=== PATIENT | female | born 1935 | race Caucasian/White ===

== ENCOUNTER 2022-07-31 16:58 | Inpatient (IN) | payer MEDICARE ==
--- NOTE | 2022-07-31 17:03 | ERPHSYRPT ---
- History of Present Illness Time Seen by Provider: 07/31/22 17:03 Source: patient, EMS, old records Exam Limitations: clinical condition Physician History: This is an 86-year-old white female patient who lives at home and is checked on at her home twice a day by a medical power of launch engineer per paramedics. Additional history was obtained from the paramedics. Patient seems confused and weak. Patient was brought to the emergency department secondary to weakness confusion and found down on the ground. It is unknown how long she has been on the ground. She has no complaints of pain. Per paramedics history, they state that she has been falling frequently. They state that her house is in a shambles and a hoarding type of condition. She is failing to thrive. Patient states its been 5 to 6 years since her last bath or shower. She denies chest pain. She denies shortness of breath. She denies abdominal pain. Timing/Duration: today Severity: moderate Associated Symptoms: denies symptoms Allergies/Adverse Reactions: No Known Drug Allergies Allergy (Verified 07/31/22 17:58) Home Medications: No Reportable Medications [No Reported Medications] 07/31/22 [History] Travel Risk - International Travel Have you traveled outside of the country in past 3 weeks: No - Coronavirus Screening Are you exhibiting any of the following symptoms?: No Close contact with a COVID-19 positive Pt in past 14-21 Days: No - Review of Systems Constitutional: Weakness Eyes: No Symptoms Ears, Nose, & Throat: No Symptoms Respiratory: No Symptoms Cardiac: No Symptoms Abdominal/Gastrointestinal: No Symptoms Genitourinary Symptoms: No Symptoms Musculoskeletal: No Symptoms Skin: Dryness (Extremely dry and cracking bilateral lower extremities with almost dust and flakes of skin.) Psychological: No Symptoms Endocrine: No Symptoms Hematologic/Lymphatic: No Symptoms Immunological/Allergic: No Symptoms All Other Systems: Reviewed and Negative - Past Medical History Pertinent Past Medical History: Yes (Patient is confused ) - Past Surgical History Past Surgical History: Yes (Patient is confused and unable) - Nursing Vital Signs Nursing Vital Signs: Initial Vital Signs Temperature 97.4 F 07/31/22 17:29 Pulse Rate 69 07/31/22 17:29 Blood Pressure 98/67 07/31/22 17:29 O2 Sat by Pulse Oximetry 91 L 07/31/22 17:29 Pain Scale Pain Intensity 0 - Physical Exam General Appearance: no apparent distress, other (Confused) Eye Exam: PERRL/EOMI, eyes nml inspection Ears, Nose, Throat Exam: normal ENT inspection, dry mucous membranes Neck Exam: normal inspection, non-tender, supple, full range of motion Respiratory Exam: normal breath sounds, lungs clear, airway intact, No chest tenderness, No respiratory distress Cardiovascular Exam: regular rate/rhythm, normal heart sounds, normal peripheral pulses Gastrointestinal/Abdomen Exam: soft, normal bowel sounds, No tenderness Pelvic Exam: not done Rectal Exam: not done Back Exam: normal inspection, normal range of motion, No CVA tenderness Extremity Exam: normal range of motion, other (Bilateral lower extremity with very dry skin with flaking and powder type consistency of her dry skin in her legs. She does have palpable pedal pulses) Neurologic Exam: alert, cooperative, rn trauma II-XII nml as tested, normal mood/affect, sensation nml Skin Exam: dry (See above description of patient's bilateral lower extremities) Lymphatic Exam: No adenopathy SpO2 Interpretation: borderline oxygenation O2 Delivery: Room Air - Course Nursing assessment & vital signs reviewed: Yes EKG Interpreted by Me: RATE (66), A-fib, LAFB, Right Bundle Branch Block, Other (No acute ischemic changes on today's EKG. PVCs present. Twelve-lead EKG interpreted by me.) Ordered Tests: Active Orders 24 hr Category Date Time Status EKG-ER Only STAT Care 07/31/22 17:50 Active IV Insertion STAT Care 07/31/22 17:50 Active HEAD WITHOUT CONTRAST [CT] Stat Exams 07/31/22 17:50 Taken BLOOD CULTURE Stat Lab 07/31/22 19:11 Received CBC W DIFF Stat Lab 07/31/22 19:11 Completed CMP Stat Lab 07/31/22 19:11 Completed CULTURE,URINE Stat Lab 07/31/22 18:01 Received ETHYL ALCOHOL Stat Lab 07/31/22 19:11 Completed Folate (Folic Acid) Stat Lab 07/31/22 Ordered MAGNESIUM Stat Lab 07/31/22 19:11 Completed T4 (Thyroxine) Stat Lab 07/31/22 19:11 Completed TROPONIN Q4H Lab 07/31/22 19:11 Received TROPONIN Q4H Lab 07/31/22 22:00 Ordered TROPONIN Q4H Lab 08/01/22 02:00 Ordered TSH [TSH, 3RD Generation] Stat Lab 07/31/22 19:11 Completed UA W/RFX UR CULTURE Stat Lab 07/31/22 18:01 Completed Vitamin B12 Stat Lab 07/31/22 Ordered Transfer Order Routine Transfer 07/31/22 Ordered Medication Summary Generic Name Dose Route Start Last Admin Trade Name Alex PRN Reason Stop Dose Admin Sodium Chloride 1,000 mls @ 100 mls/hr 07/31/22 18:00 07/31/22 18:28 Sodium Chloride 0.9% 1000 Ml IV 08/30/22 17:59 100 mls/hr .Q10H TATY Administration Discontinued Medications Generic Name Dose Route Start Last Admin Trade Name Freq PRN Reason Stop Dose Admin Ondansetron HCl 4 mg 07/31/22 17:50 07/31/22 18:28 Ondansetron Hcl 4 Mg/2 Ml Vial IV 07/31/22 17:51 4 mg STAT ONE Administration Ondansetron HCl Confirm 07/31/22 18:27 Ondansetron Hcl 4 Mg/2 Ml Vial Administered 07/31/22 18:28 Dose 4 mg .ROUTE .STK-MED ONE Lab/Rad Data: Laboratory Result Diagrams 07/31/22 19:11 07/31/22 19:11 Laboratory Results 07/31/22 07/31/22 07/31/22 Range/Units 19:11 19:11 19:11 WBC (4.0-10.5) x10^3/uL RBC (4.1-5.4) x10^6/uL Hgb (12.0-16.0) g/dL Hct (35-47) % MCV (78-100) fL MCH (26-32) pg MCHC (32-36) g/dL RDW (11.5-14.0) % Plt Count (150-450) x10^3/uL MPV (7.5-11.0) fL Gran % (36.0-66.0) % Immature Gran % (Auto) (0.00-0.4) % Nucleat RBC Rel Count (0.00-0.1) % Eos # (Auto) (0-0.5) x10^3/uL Immature Gran # (Auto) (0.00-0.03) x10^3u/L Absolute Lymphs (auto) (1.0-4.6) x10^3/uL Absolute Monos (auto) (0.0-1.3) x10^3/uL Absolute Nucleated RBC (0.00-0.01) x10^3u/L Lymphocytes % (24.0-44.0) % Monocytes % (0.0-12.0) % Eosinophils % (0.00-5.0) % Basophils % (0.0-0.4) % Absolute Granulocytes (1.4-6.9) x10^3/uL Basophils # (0-0.4) x10^3/uL Sodium (137-145) mmol/L Potassium (3.5-5.1) mmol/L Chloride (98-107) mmol/L Carbon Dioxide (22-30) mmol/L Anion Gap (5-15) MEQ/L BUN (7-17) mg/dL Creatinine (0.52-1.04) mg/dL Estimated GFR ML/MIN Glucose (74-106) mg/dL Calcium (8.4-10.2) mg/dL Magnesium (1.6-2.3) mg/dL Total Bilirubin (0.2-1.3) mg/dL AST (14-36) U/L ALT (0-35) U/L Alkaline Phosphatase (38-126) U/L Ammonia < 9 L (9-30) umol/L Serum Total Protein (6.3-8.2) g/dL Albumin (3.5-5.0) g/dL Thyroxine (T4) 0.622 L (5.53-10.96) ug/dL TSH 3rd Generation (0.47-4.68) mIU/L Urine Color (Yellow) Urine Appearance (Clear) Urine pH (4.6-8.0) Ur Specific Clayton (1.005-1.030) Urine Protein (Negative) Urine Glucose (UA) (Negative) mg/dL Urine Ketones (Negative) Urine Blood (Negative) Urine Nitrite (Negative) Urine Bilirubin (Negative) Urine Urobilinogen (0.2) mg/dL Ur Leukocyte Esterase (Negative) U Hyaline Cast (Auto) (0-2) /LPF Urine Microscopic RBC (0-5) /HPF Urine Microscopic WBC (0-5) /HPF Ur Epithelial Cells (None Seen) /HPF Urine Bacteria (None Seen) /HPF Urine Culture Reflexed (NO) Ethyl Alcohol (0-10) mg/dL Influenza Type A Ag NEGATIVE (NEGATIVE) Influenza Type B Ag NEGATIVE (NEGATIVE) RSV (PCR) NEGATIVE (Negative) SARS-CoV-2 (PCR) NEGATIVE (NEGATIVE) 07/31/22 07/31/22 07/31/22 Range/Units 19:11 19:11 19:11 WBC 6.8 (4.0-10.5) x10^3/uL RBC 3.70 L (4.1-5.4) x10^6/uL Hgb 11.8 L (12.0-16.0) g/dL Hct 35.2 (35-47) % MCV 95.1 (78-100) fL MCH 31.9 (26-32) pg MCHC 33.5 (32-36) g/dL RDW 13.0 (11.5-14.0) % Plt Count 177 (150-450) x10^3/uL MPV 9.6 (7.5-11.0) fL Gran % 82.6 H (36.0-66.0) % Immature Gran % (Auto) 0.4 (0.00-0.4) % Nucleat RBC Rel Count 0.0 (0.00-0.1) % Eos # (Auto) 0.04 (0-0.5) x10^3/uL Immature Gran # (Auto) 0.03 (0.00-0.03) x10^3u/L Absolute Lymphs (auto) 0.64 L (1.0-4.6) x10^3/uL Absolute Monos (auto) 0.46 (0.0-1.3) x10^3/uL Absolute Nucleated RBC 0.00 (0.00-0.01) x10^3u/L Lymphocytes % 9.4 L (24.0-44.0) % Monocytes % 6.7 (0.0-12.0) % Eosinophils % 0.6 (0.00-5.0) % Basophils % 0.3 (0.0-0.4) % Absolute Granulocytes 5.65 (1.4-6.9) x10^3/uL Basophils # 0.02 (0-0.4) x10^3/uL Sodium 136 L (137-145) mmol/L Potassium 3.9 (3.5-5.1) mmol/L Chloride 103 (98-107) mmol/L Carbon Dioxide 28 (22-30) mmol/L Anion Gap 9.2 (5-15) MEQ/L BUN 28 H (7-17) mg/dL Creatinine 1.11 H (0.52-1.04) mg/dL Estimated GFR 49.5 ML/MIN Glucose 91 (74-106) mg/dL Calcium 9.4 (8.4-10.2) mg/dL Magnesium 2.0 (1.6-2.3) mg/dL Total Bilirubin 1.40 H (0.2-1.3) mg/dL AST 94 H (14-36) U/L ALT 24 (0-35) U/L Alkaline Phosphatase 49 (38-126) U/L Ammonia (9-30) umol/L Serum Total Protein 7.4 (6.3-8.2) g/dL Albumin 4.1 (3.5-5.0) g/dL Thyroxine (T4) (5.53-10.96) ug/dL TSH 3rd Generation 30.200 H (0.47-4.68) mIU/L Urine Color (Yellow) Urine Appearance (Clear) Urine pH (4.6-8.0) Ur Specific [place] (1.005-1.030) Urine Protein (Negative) Urine Glucose (UA) (Negative) mg/dL Urine Ketones (Negative) Urine Blood (Negative) Urine Nitrite (Negative) Urine Bilirubin (Negative) Urine Urobilinogen (0.2) mg/dL Ur Leukocyte Esterase (Negative) U Hyaline Cast (Auto) (0-2) /LPF Urine Microscopic RBC (0-5) /HPF Urine Microscopic WBC (0-5) /HPF Ur Epithelial Cells (None Seen) /HPF Urine Bacteria (None Seen) /HPF Urine Culture Reflexed (NO) Ethyl Alcohol < 10 (0-10) mg/dL Influenza Type A Ag (NEGATIVE) Influenza Type B Ag (NEGATIVE) RSV (PCR) (Negative) SARS-CoV-2 (PCR) (NEGATIVE) 07/31/22 Range/Units 18:01 WBC (4.0-10.5) x10^3/uL RBC (4.1-5.4) x10^6/uL Hgb (12.0-16.0) g/dL Hct (35-47) % MCV (78-100) fL MCH (26-32) pg MCHC (32-36) g/dL RDW (11.5-14.0) % Plt Count (150-450) x10^3/uL MPV (7.5-11.0) fL Gran % (36.0-66.0) % Immature Gran % (Auto) (0.00-0.4) % Nucleat RBC Rel Count (0.00-0.1) % Eos # (Auto) (0-0.5) x10^3/uL Immature Gran # (Auto) (0.00-0.03) x10^3u/L Absolute Lymphs (auto) (1.0-4.6) x10^3/uL Absolute Monos (auto) (0.0-1.3) x10^3/uL Absolute Nucleated RBC (0.00-0.01) x10^3u/L Lymphocytes % (24.0-44.0) % Monocytes % (0.0-12.0) % Eosinophils % (0.00-5.0) % Basophils % (0.0-0.4) % Absolute Granulocytes (1.4-6.9) x10^3/uL Basophils # (0-0.4) x10^3/uL Sodium (137-145) mmol/L Potassium (3.5-5.1) mmol/L Chloride (98-107) mmol/L Carbon Dioxide (22-30) mmol/L Anion Gap (5-15) MEQ/L BUN (7-17) mg/dL Creatinine (0.52-1.04) mg/dL Estimated GFR ML/MIN Glucose (74-106) mg/dL Calcium (8.4-10.2) mg/dL Magnesium (1.6-2.3) mg/dL Total Bilirubin (0.2-1.3) mg/dL AST (14-36) U/L ALT (0-35) U/L Alkaline Phosphatase (38-126) U/L Ammonia (9-30) umol/L Serum Total Protein (6.3-8.2) g/dL Albumin (3.5-5.0) g/dL Thyroxine (T4) (5.53-10.96) ug/dL TSH 3rd Generation (0.47-4.68) mIU/L Urine Color Dark Yellow A (Yellow) Urine Appearance Clear (Clear) Urine pH 6.0 (4.6-8.0) Ur Specific [place] 1.025 (1.005-1.030) Urine Protein 30 (Negative) Urine Glucose (UA) Negative (Negative) mg/dL Urine Ketones Negative (Negative) Urine Blood Negative (Negative) Urine Nitrite Negative (Negative) Urine Bilirubin Negative (Negative) Urine Urobilinogen 1.0 A (0.2) mg/dL Ur Leukocyte Esterase Negative (Negative) U Hyaline Cast (Auto) NONE SEEN (0-2) /LPF Urine Microscopic RBC 3-5 (0-5) /HPF Urine Microscopic WBC 0-2 (0-5) /HPF Ur Epithelial Cells None Seen (None Seen) /HPF Urine Bacteria None Seen (None Seen) /HPF Urine Culture Reflexed ORDERED SEPARATELY (NO) Ethyl Alcohol (0-10) mg/dL Influenza Type A Ag (NEGATIVE) Influenza Type B Ag (NEGATIVE) RSV (PCR) (Negative) SARS-CoV-2 (PCR) (NEGATIVE) - Progress Progress: improved Progress Note: 07/31/22 19:51 CT of head without contrast shows a nonacute senile brain. 07/31/22 21:26 Medical decision making: This patient's medical issue is of moderate to high level of complexity. The level complexity was determined by obtaining what history I could obtain from patient who is confused and weak. Additional history was obtained from patient's old records as well as the paramedics who brought the patient into the emergency room. The work-up was based on the patient's history, physical exam findings and the patient's complaints and vital signs. I reviewed the patient's lab work, twelve-lead EKG results, urinalysis and radiographic study results. I compared these to old records and the labs that were within them. Patient's social issue is that she lives alone and is unable to care for herself. Patient stated that she only eats when people from her yazdanism bring her food. She is falling frequently and she is weak. She was also found to be significantly hypothyroid. She is not on any medications. I spoke with the hospitalist, Dr. Geovani Pedro and reviewed the above information. Together, we formulated a plan which includes admitting the patient into the hospital and repeating labs, providing 24/7 cardiac monitoring and provide her with low rate intravenous fluid and oral intake. Further work- up of the patient's thyroid status will be performed in the hospital setting. We will also obtain a consultation for discharge planning. Discussed with Dr.: Her Counseled pt/family regarding: lab results, diagnosis, rad results - Departure Departure Disposition: In-patient Admission Clinical Impression: Hypothyroid, Failure to thrive, Confusion, Weakness, Frequent falls Condition: Stable Critical Care Time: No Referrals: DOCTOR,NO FAMILY [Primary Care Provider] - Follow up/PCP as directed
[2022-07-31] MEDS ORDERED: Zofran 4 MG/2 ML VIAL IV ONE (17:50)
[2022-07-31] MEDS ORDERED: Sodium Chloride 0.9% 1000 ML 1,000 ML IV SCH (18:00)
[2022-07-31] MEDS ORDERED: Zofran 4 MG/2 ML VIAL ONE (18:27)
[2022-07-31] MEDS ORDERED: Sodium Chloride 0.9% 1000 ML 1,000 ML ONE (18:28)
[2022-07-31 18:51] LABS: Appearance Clear (Clear); Bacteria None Seen /HPF (None Seen); Bilirubin Negative (Negative); Blood Negative (Negative); Epithelial Cells None Seen /HPF (None Seen); Glucose, Urine Negative (Negative); Hyaline Casts NONE SEEN /LPF (0-2); Ketones Negative (Negative); Leukocyte Esterase Negative (Negative); Nitrite Negative (Negative); Protein,Urine Dip 30 (Negative); Specific Gravity 1.025 (1.005-1.030); WBC 0-2 /HPF (0-5)
[2022-07-31 19:07] LABS: ADD URINE CULTURE? ORDERED SEPARATELY (NO)
[2022-07-31 19:23] LABS: Absolute Neutrophil Ct (ANC) 5.65 x10^3/uL (1.4-6.9); BASOPHIL % 0.3 % (0.0-0.4); Basophil (Absolute #) 0.02 x10^3/uL (0-0.4); Eosinophil % 0.6 % (0.00-5.0); Eosinophil (Absolute #) 0.04 x10^3/uL (0-0.5); Hematocrit 35.2 % (35-47); Hemoglobin 11.8 g/dL (12.0-16.0); IMMATURE GRAN # 0.03 x10^3u/L (0.00-0.03); IMMATURE GRAN % 0.4 % (0.00-0.4); Lymphocyte (Absolute #) 0.64 x10^3/uL (1.0-4.6); Lymphocytes % 9.4 % (24.0-44.0); Mean Cell Volume 95.1 fL (78-100); Mean Corpuscular Hemoglobin 31.9 pg (26-32); Mean Corpuscular Hgb Concent. 33.5 g/dL (32-36); Mean Platelet Volume 9.6 fL (7.5-11.0); Monocyte (Absolute #) 0.46 x10^3/uL (0.0-1.3); Monocytes % 6.7 % (0.0-12.0); Neutrophil % 82.6 % (36.0-66.0); Platelet Count 177 x10^3/uL (150-450); White Blood Count 6.8 x10^3/uL (4.0-10.5)
[2022-07-31 19:41] LABS: ALBUMIN 4.1 g/dL (3.5-5.0); ALKALINE PHOSPHATASE 49 U/L (38-126); ANION GAP 9.2 MEQ/L (5-15); BLOOD UREA NITROGEN 28 mg/dL (7-17); CHLORIDE 103 mmol/L (98-107); Calcium 9.4 mg/dL (8.4-10.2); Carbon Dioxide 28 mmol/L (22-30); Creatinine 1 1.11 mg/dL (0.52-1.04); EST GLOMERULAR FILTRATION RATE 49.5 ML/MIN; ETHYL ALCOHOL < 10 mg/dL (0-10); Glucose 91 mg/dL (74-106); Potassium 3.9 mmol/L (3.5-5.1); SGOT/AST 94 U/L (14-36); SGPT/ALT 24 U/L (0-35); SODIUM 136 mmol/L (137-145); Total Protein 7.4 g/dL (6.3-8.2)
[2022-07-31 20:00] LABS: INFLUENZA A NEGATIVE (NEGATIVE); INFLUENZA B NEGATIVE (NEGATIVE); RESPIRATORY SYNCTIAL VIRUS NEGATIVE (Negative); SARS-CoV-2 Xpert Express NEGATIVE (NEGATIVE)
[2022-07-31] MEDS ORDERED: Zofran 4 MG/2 ML VIAL IV PRN (22:38)
[2022-07-31] MEDS ORDERED: TYLENOL 325 MG PO PRN (22:38)
[2022-07-31 23:00] LABS: Folate (Folic Acid) 6.67 ng/mL (2.76 - >20)
[2022-07-31] MEDS: Sodium Chloride 0.9% 1000 ML 1,000 ML IV SCH (23:14)
[2022-08-01 05:34] LABS: Absolute Neutrophil Ct (ANC) 5.09 x10^3/uL (1.4-6.9); BASOPHIL % 0.2 % (0.0-0.4); Basophil (Absolute #) 0.01 x10^3/uL (0-0.4); Eosinophil % 0.9 % (0.00-5.0); Eosinophil (Absolute #) 0.06 x10^3/uL (0-0.5); Hematocrit 34.5 % (35-47); Hemoglobin 11.6 g/dL (12.0-16.0); IMMATURE GRAN # 0.04 x10^3u/L (0.00-0.03); IMMATURE GRAN % 0.6 % (0.00-0.4); Lymphocyte (Absolute #) 0.79 x10^3/uL (1.0-4.6); Lymphocytes % 12.4 % (24.0-44.0); Mean Cell Volume 96.9 fL (78-100); Mean Corpuscular Hemoglobin 32.6 pg (26-32); Mean Corpuscular Hgb Concent. 33.6 g/dL (32-36); Mean Platelet Volume 9.3 fL (7.5-11.0); Monocytes % 6.3 % (0.0-12.0); Neutrophil % 79.6 % (36.0-66.0); Platelet Count 179 x10^3/uL (150-450); Red Blood Count 3.56 x10^6/uL (4.1-5.4); Red Cell Distribution Width 13.1 % (11.5-14.0); White Blood Count 6.4 x10^3/uL (4.0-10.5)
[2022-08-01 05:49] LABS: ALBUMIN 3.7 g/dL (3.5-5.0); ANION GAP 7.6 MEQ/L (5-15); BILIRUBIN,TOTAL 1.1 mg/dL (0.2-1.3); Calcium 8.7 mg/dL (8.4-10.2); Creatinine 1 1.14 mg/dL (0.52-1.04); Potassium 3.8 mmol/L (3.5-5.1); Total Protein 6.7 g/dL (6.3-8.2)
--- NOTE | 2022-08-01 08:38 | XRAY ---
Indication: Dizziness. Frequent falls. Multiple contiguous axial images obtained through the head without contrast. Comparison: None Age-appropriate global atrophy and mild periventricular degenerative micro-ischemia bilaterally. No acute intracranial hemorrhage, abnormal extra-axial fluid collection, or mass effect. Fourth ventricle is midline without hydrocephalus. Bony calvarium intact. Visualized paranasal sinuses and mastoid air cells are clear. Impression: Nonacute senile brain.
--- NOTE | 2022-08-01 11:32 | PCM.HP ---
History of Present Illness - Chief Complaint Chief Complaint: fall History of Present Illness: is a 86 year old female pt with no local MD who was brought in to ER after being found down. She was dx with frequent falls, FTT and found to be hypothyroid with hyponatremia. CT head was nonacute. Sodium 136 initially, 134 this morning. Her T4 was low at 0.622 and TSH elevated at 30. UA neg. Flu/Covid neg. Neg for EtOH. Ammonia nl. eGFR 49.5. She apparently lives at home alone and has siblings who are POA. Friends from [employer] check on her twice a day, generally. She apparently only eats when the hindu brings her food. She lives in a hoarding type situation. Yesterday so meone was only able to check on her in the afternoon and she was found down for an unknown period of time. She was unable to say how long. Today she does not know time or date for me (tells RN she is in [place] in 1936). She denies any pain. HPI is from her ER chart. - Review of Systems All Other Systems: Unable due to condition Medications & Allergies Home Medications: Home Medication List No Reportable Medications [No Reported Medications] 07/31/22 [History Confirmed 07/31/22] Allergies/Adverse Reactions: Allergies Allergy/AdvReac Type Severity Reaction Status Date / Time No Known Drug Allergies Allergy Verified 07/31/22 17:58 - Past Medical History Past Medical History: Yes (Patient is confused ) Neurological History: Dementia Cardiac History: No Pertinent History Respiratory History: No Pertinent History Endocrine Medical History: Hypothyroidism Musculoskelatal History: Arthritis GI Medical History: No Pertinent History Pyscho-Social History: Anxiety, Depression Comment: pt states she has't seen a sdoctor for quite awhile - Female History Are you now?: No - Past Surgical History Past Surgical History: Yes Neuro Surgical History: No Pertinent History Cardiac History: No Pertinent History Respiratory Surgery: No Pertinent History GI Surgical History: Appendectomy Genitourinary Surgical Hx: No Pertinent History Musculskeletal Surgical Hx: Joint Replacement Female Surgical History: No Pertinent History Other Surgical History: rt hip in [facility]-Dr Torres - Social History Smoking Status: Never smoker Exposure to second hand smoke: No Alcohol: None Drug Use: none - Physical Exam Vital Signs: Vital Signs - 24 hr Temp Pulse Resp BP Pulse Ox 08/01/22 11:18 97.9 F 65 16 102/57 94 L 08/01/22 07:41 97.8 F 78 16 122/64 92 L 08/01/22 04:00 98.2 F 69 18 113/58 95 07/31/22 23:31 97.7 F 76 18 119/77 95 07/31/22 21:00 68 142/78 96 07/31/22 20:00 63 124/96 95 07/31/22 19:11 97.4 F 61 135/78 97 07/31/22 18:00 61 117/87 97 07/31/22 17:29 97.4 F 69 98/67 91 L General Appearance: no apparent distress, thin Neurologic Exam: alert, cooperative, disoriented Eye Exam: eyes nml inspection Ears, Nose, Throat Exam: moist mucous membranes Neck Exam: normal inspection Respiratory Exam: lungs clear, diminished breath sounds (good air exchange), No crackles/rales, No rhonchi, No wheezing Cardiovascular Exam: regular rate/rhythm, normal heart sounds, No murmur Wound Assessment: Skin/Wound Assessment Wound/Incision Assessment Start: 08/01/22 0 0:07 Text: Status: Active Freq: Q6H Protocol: Document 08/01/22 08:00 [facility] (Rec: 08/01/22 08:43 [facility] [id number]) Wound/Incision Assessment Sacrum Wound Assessment Shift Assessment Wound Type Pressure Ulcer Wound Stage Stage I Dressing Status Dry & Intact Drainage Amount None Wound Bed Greatest Portion Pale [place] Wound Bed Lesser Portion Red (Granulation) Surrounding Tissue Park[place] Primary Dressing MEPILEX Results - Labs Lab/Micro Results: Lab Results-Last 24 Hours 07/31/22 07/31/22 07/31/22 Range/Units 18:01 19:00 19:11 WBC 6.8 (4.0-10.5) x10^3/uL RBC 3.70 L (4.1-5.4) x10^6/uL Hgb 11.8 L (12.0-16.0) g/dL Hct 35.2 (35-47) % MCV 95.1 (78-100) fL MCH 31.9 (26-32) pg MCHC 33.5 (32-36) g/dL RDW 13.0 (11.5-14.0) % Plt Count 177 (150-450) x10^3/uL MPV 9.6 (7.5-11.0) fL Gran % 82.6 H (36.0-66.0) % Immature Gran % (Auto) 0.4 (0.00-0.4) % Nucleat RBC Rel Count 0.0 (0.00-0.1) % Eos # (Auto) 0.04 (0-0.5) x10^3/uL Immature Gran # (Auto) 0.03 (0.00-0.03) x10^3u/L Absolute Lymphs (auto) 0.64 L (1.0-4.6) x10^3/uL Absolute Monos (auto) 0.46 (0.0-1.3) x10^3/uL Absolute Nucleated RBC 0.00 (0.00-0.01) x10^3u/L Lymphocytes % 9.4 L (24.0-44.0) % Monocytes % 6.7 (0.0-12.0) % Eosinophils % 0.6 (0.00-5.0) % Basophils % 0.3 (0.0-0.4) % Absolute Granulocytes 5.65 (1.4-6.9) x10^3/uL Basophils # 0.02 (0-0.4) x10^3/uL Sodium (137-145) mmol/L Potassium (3.5-5.1) mmol/L Chloride (98-107) mmol/L Carbon Dioxide (22-30) mmol/L Anion Gap (5-15) MEQ/L BUN (7-17) mg/dL Creatinine (0.52-1.04) mg/dL Estimated GFR ML/MIN Glucose (74-106) mg/dL Calcium (8.4-10.2) mg/dL Magnesium (1.6-2.3) mg/dL Total Bilirubin (0.2-1.3) mg/dL AST (14-36) U/L ALT (0-35) U/L Alkaline Phosphatase (38-126) U/L Ammonia (9-30) umol/L Troponin I (0.000-0.034) ng/mL NT-Pro-B Natriuret Pep (0-1800) pg/mL Serum Total Protein (6.3-8.2) g/dL Albumin (3.5-5.0) g/dL Vitamin B12 307 (239-931) pg/mL Folic Acid 6.67 (2.76 - >20) ng/mL Thyroxine (T4) (5.53-10.96) ug/dL TSH 3rd Generation (0.47-4.68) mIU/L Urine Color Dark Yellow A (Yellow) Urine Appearance Clear (Clear) Urine pH 6.0 (4.6-8.0) Ur Specific [place] 1.025 (1.005-1.030) Urine Protein 30 (Negative) Urine Glucose (UA) Negative (Negative) mg/dL Urine Ketones Negative (Negative) Urine Blood Negative (Negative) Urine Nitrite Negative (Negative) Urine Bilirubin Negative (Negative) Urine Urobilinogen 1.0 A (0.2) mg/dL Ur Leukocyte Esterase Negative (Negative) U Hyaline Cast (Auto) NONE SEEN (0-2) /LPF Urine Microscopic RBC 3-5 (0-5) /HPF Urine Microscopic WBC 0-2 (0-5) /HPF Ur Epithelial Cells None Seen (None Seen) /HPF Urine Bacteria None Seen (None Seen) /HPF Urine Culture Reflexed ORDERED SEPARATELY (NO) Ethyl Alcohol (0-10) mg/dL Influenza Type A Ag (NEGATIVE) Influenza Type B Ag (NEGATIVE) RSV (PCR) (Negative) SARS-CoV-2 (PCR) (NEGATIVE) 07/31/22 07/31/22 07/31/22 Range/Units 19:11 19:11 19:11 WBC (4.0-10.5) x10^3/uL RBC (4.1-5.4) x10^6/uL Hgb (12.0-16.0) g/dL Hct (35-47) % MCV (78-100) fL MCH (26-32) pg MCHC (32-36) g/dL RDW (11.5-14.0) % Plt Count (150-450) x10^3/uL MPV (7.5-11.0) fL Gran % (36.0-66.0) % Immature Gran % (Auto) (0.00-0.4) % Nucleat RBC Rel Count (0.00-0.1) % Eos # (Auto) (0-0.5) x10^3/uL Immature Gran # (Auto) (0.00-0.03) x10^3u/L Absolute Lymphs (auto) (1.0-4.6) x10^3/uL Absolute Monos (auto) (0.0-1.3) x10^3/uL Absolute Nucleated RBC (0.00-0.01) x10^3u/L Lymphocytes % (24.0-44.0) % Monocytes % (0.0-12.0) % Eosinophils % (0.00-5.0) % Basophils % (0.0-0.4) % Absolute Granulocytes (1.4-6.9) x10^3/uL Basophils # (0-0.4) x10^3/uL Sodium 136 L (137-145) mmol/L Potassium 3.9 (3.5-5.1) mmol/L Chloride 103 (98-107) mmol/L Carbon Dioxide 28 (22-30) mmol/L Anion Gap 9.2 (5-15) MEQ/L BUN 28 H (7-17) mg/dL Creatinine 1.11 H (0.52-1.04) mg/dL Estimated GFR 49.5 ML/MIN Glucose 91 (74-106) mg/dL Calcium 9.4 (8.4-10.2) mg/dL Magnesium 2.0 (1.6-2.3) mg/dL Total Bilirubin 1.40 H (0.2-1.3) mg/dL AST 94 H (14-36) U/L ALT 24 (0-35) U/L Alkaline Phosphatase 49 (38-126) U/L Ammonia (9-30) umol/L Troponin I < 0.012 (0.000-0.034) ng/mL NT-Pro-B Natriuret Pep (0-1800) pg/mL Serum Total Protein 7.4 (6.3-8.2) g/dL Albumin 4.1 (3.5-5.0) g/dL Vitamin B12 (239-931) pg/mL Folic Acid (2.76 - >20) ng/mL Thyroxine (T4) (5.53-10.96) ug/dL TSH 3rd Generation 30.200 H (0.47-4.68) mIU/L Urine Color (Yellow) Urine Appearance (Clear) Urine pH (4.6-8.0) Ur Specific [place] (1.005-1.030) Urine Protein (Negative) Urine Glucose (UA) (Negative) mg/dL Urine Ketones (Negative) Urine Blood (Negative) Urine Nitrite (Negative) Urine Bilirubin (Negative) Urine Urobilinogen (0.2) mg/dL Ur Leukocyte Esterase (Negative) U Hyaline Cast (Auto) (0-2) /LPF Urine Microscopic RBC (0-5) /HPF Urine Microscopic WBC (0-5) /HPF Ur Epithelial Cells (None Seen) /HPF Urine Bacteria (None Seen) /HPF Urine Culture Reflexed (NO) Ethyl Alcohol < 10 (0-10) mg/dL Influenza Type A Ag (NEGATIVE) Influenza Type B Ag (NEGATIVE) RSV (PCR) (Negative) SARS-CoV-2 (PCR) (NEGATIVE) 07/31/22 07/31/22 07/31/22 Range/Units 19:11 19:11 19:11 WBC (4.0-10.5) x10^3/uL RBC (4.1-5.4) x10^6/uL Hgb (12.0-16.0) g/dL Hct (35-47) % MCV (78-100) fL MCH (26-32) pg MCHC (32-36) g/dL RDW (11.5-14.0) % Plt Count (150-450) x10^3/uL MPV (7.5-11.0) fL Gran % (36.0-66.0) % Immature Gran % (Auto) (0.00-0.4) % Nucleat RBC Rel Count (0.00-0.1) % Eos # (Auto) (0-0.5) x10^3/uL Immature Gran # (Auto) (0.00-0.03) x10^3u/L Absolute Lymphs (auto) (1.0-4.6) x10^3/uL Absolute Monos (auto) (0.0-1.3) x10^3/uL Absolute Nucleated RBC (0.00-0.01) x10^3u/L Lymphocytes % (24.0-44.0) % Monocytes % (0.0-12.0) % Eosinophils % (0.00-5.0) % Basophils % (0.0-0.4) % Absolute Granulocytes (1.4-6.9) x10^3/uL Basophils # (0-0.4) x10^3/uL Sodium (137-145) mmol/L Potassium (3.5-5.1) mmol/L Chloride (98-107) mmol/L Carbon Dioxide (22-30) mmol/L Anion Gap (5-15) MEQ/L BUN (7-17) mg/dL Creatinine (0.52-1.04) mg/dL Estimated GFR ML/MIN Glucose (74-106) mg/dL Calcium (8.4-10.2) mg/dL Magnesium (1.6-2.3) mg/dL Total Bilirubin (0.2-1.3) mg/dL AST (14-36) U/L ALT (0-35) U/L Alkaline Phosphatase (38-126) U/L Ammonia < 9 L (9-30) umol/L Troponin I (0.000-0.034) ng/mL NT-Pro-B Natriuret Pep (0-1800) pg/mL Serum Total Protein (6.3-8.2) g/dL Albumin (3.5-5.0) g/dL Vitamin B12 (239-931) pg/mL Folic Acid (2.76 - >20) ng/mL Thyroxine (T4) 0.622 L (5.53-10.96) ug/dL TSH 3rd Generation (0.47-4.68) mIU/L Urine Color (Yellow) Urine Appearance (Clear) Urine pH (4.6-8.0) Ur Specific [place] (1.005-1.030) Urine Protein (Negative) Urine Glucose (UA) (Negative) mg/dL Urine Ketones (Negative) Urine Blood (Negative) Urine Nitrite (Negative) Urine Bilirubin (Negative) Urine Urobilinogen (0.2) mg/dL Ur Leukocyte Esterase (Negative) U Hyaline Cast (Auto) (0-2) /LPF Urine Microscopic RBC (0-5) /HPF Urine Microscopic WBC (0-5) /HPF Ur Epithelial Cells (None Seen) /HPF Urine Bacteria (None Seen) /HPF Urine Culture Reflexed (NO) Ethyl Alcohol (0-10) mg/dL Influenza Type A Ag NEGATIVE (NEGATIVE) Influenza Type B Ag NEGATIVE (NEGATIVE) RSV (PCR) NEGATIVE (Negative) SARS-CoV-2 (PCR) NEGATIVE (NEGATIVE) 07/31/22 08/01/22 08/01/22 Range/Units 23:25 04:49 04:49 WBC 6.4 (4.0-10.5) x10^3/uL RBC 3.56 L (4.1-5.4) x10^6/uL Hgb 11.6 L (12.0-16.0) g/dL Hct 34.5 L (35-47) % MCV 96.9 (78-100) fL MCH 32.6 H (26-32) pg MCHC 33.6 (32-36) g/dL RDW 13.1 (11.5-14.0) % Plt Count 179 (150-450) x10^3/uL MPV 9.3 (7.5-11.0) fL Gran % 79.6 H (36.0-66.0) % Immature Gran % (Auto) 0.6 H (0.00-0.4) % Nucleat RBC Rel Count 0.0 (0.00-0.1) % Eos # (Auto) 0.06 (0-0.5) x10^3/uL Immature Gran # (Auto) 0.04 H (0.00-0.03) x10^3u/L Absolute Lymphs (auto) 0.79 L (1.0-4.6) x10^3/uL Absolute Monos (auto) 0.40 (0.0-1.3) x10^3/uL Absolute Nucleated RBC 0.00 (0.00-0.01) x10^3u/L Lymphocytes % 12.4 L (24.0-44.0) % Monocytes % 6.3 (0.0-12.0) % Eosinophils % 0.9 (0.00-5.0) % Basophils % 0.2 (0.0-0.4) % Absolute Granulocytes 5.09 (1.4-6.9) x10^3/uL Basophils # 0.01 (0-0.4) x10^3/uL Sodium (137-145) mmol/L Potassium (3.5-5.1) mmol/L Chloride (98-107) mmol/L Carbon Dioxide (22-30) mmol/L Anion Gap (5-15) MEQ/L BUN (7-17) mg/dL Creatinine (0.52-1.04) mg/dL Estimated GFR ML/MIN Glucose (74-106) mg/dL Calcium (8.4-10.2) mg/dL Magnesium (1.6-2.3) mg/dL Total Bilirubin (0.2-1.3) mg/dL AST (14-36) U/L ALT (0-35) U/L Alkaline Phosphatase (38-126) U/L Ammonia (9-30) umol/L Troponin I < 0.012 < 0.012 (0.000-0.034) ng/mL NT-Pro-B Natriuret Pep (0-1800) pg/mL Serum Total Protein (6.3-8.2) g/dL Albumin (3.5-5.0) g/dL Vitamin B12 (239-931) pg/mL Folic Acid (2.76 - >20) ng/mL Thyroxine (T4) (5.53-10.96) ug/dL TSH 3rd Generation (0.47-4.68) mIU/L Urine Color (Yellow) Urine Appearance (Clear) Urine pH (4.6-8.0) Ur Specific [place] (1.005-1.030) Urine Protein (Negative) Urine Glucose (UA) (Negative) mg/dL Urine Ketones (Negative) Urine Blood (Negative) Urine Nitrite (Negative) Urine Bilirubin (Negative) Urine Urobilinogen (0.2) mg/dL Ur Leukocyte Esterase (Negative) U Hyaline Cast (Auto) (0-2) /LPF Urine Microscopic RBC (0-5) /HPF Urine Microscopic WBC (0-5) /HPF Ur Epithelial Cells (None Seen) /HPF Urine Bacteria (None Seen) /HPF Urine Culture Reflexed (NO) Ethyl Alcohol (0-10) mg/dL Influenza Type A Ag (NEGATIVE) Influenza Type B Ag (NEGATIVE) RSV (PCR) (Negative) SARS-CoV-2 (PCR) (NEGATIVE) 08/01/22 Range/Units 04:49 WBC (4.0-10.5) x10^3/uL RBC (4.1-5.4) x10^6/uL Hgb (12.0-16.0) g/dL Hct (35-47) % MCV (78-100) fL MCH (26-32) pg MCHC (32-36) g/dL RDW (11.5-14.0) % Plt Count (150-450) x10^3/uL MPV (7.5-11.0) fL Gran % (36.0-66.0) % Immature Gran % (Auto) (0.00-0.4) % Nucleat RBC Rel Count (0.00-0.1) % Eos # (Auto) (0-0.5) x10^3/uL Immature Gran # (Auto) (0.00-0.03) x10^3u/L Absolute Lymphs (auto) (1.0-4.6) x10^3/uL Absolute Monos (auto) (0.0-1.3) x10^3/uL Absolute Nucleated RBC (0.00-0.01) x10^3u/L Lymphocytes % (24.0-44.0) % Monocytes % (0.0-12.0) % Eosinophils % (0.00-5.0) % Basophils % (0.0-0.4) % Absolute Granulocytes (1.4-6.9) x10^3/uL Basophils # (0-0.4) x10^3/uL Sodium 134 L (137-145) mmol/L Potassium 3.8 (3.5-5.1) mmol/L Chloride 104 (98-107) mmol/L Carbon Dioxide 27 (22-30) mmol/L Anion Gap 7.6 (5-15) MEQ/L BUN 24 H (7-17) mg/dL Creatinine 1.14 H (0.52-1.04) mg/dL Estimated GFR 48.0 ML/MIN Glucose 86 (74-106) mg/dL Calcium 8.7 (8.4-10.2) mg/dL Magnesium (1.6-2.3) mg/dL Total Bilirubin 1.10 (0.2-1.3) mg/dL AST 99 H (14-36) U/L ALT 25 (0-35) U/L Alkaline Phosphatase 49 (38-126) U/L Ammonia (9-30) umol/L Troponin I (0.000-0.034) ng/mL NT-Pro-B Natriuret Pep 583 (0-1800) pg/mL Serum Total Protein 6.7 (6.3-8.2) g/dL Albumin 3.7 (3.5-5.0) g/dL Vitamin B12 (239-931) pg/mL Folic Acid (2.76 - >20) ng/mL Thyroxine (T4) (5.53-10.96) ug/dL TSH 3rd Generation (0.47-4.68) mIU/L Urine Color (Yellow) Urine Appearance (Clear) Urine pH (4.6-8.0) Ur Specific [place] (1.005-1.030) Urine Protein (Negative) Urine Glucose (UA) (Negative) mg/dL Urine Ketones (Negative) Urine Blood (Negative) Urine Nitrite (Negative) Urine Bilirubin (Negative) Urine Urobilinogen (0.2) mg/dL Ur Leukocyte Esterase (Negative) U Hyaline Cast (Auto) (0-2) /LPF Urine Microscopic RBC (0-5) /HPF Urine Microscopic WBC (0-5) /HPF Ur Epithelial Cells (None Seen) /HPF Urine Bacteria (None Seen) /HPF Urine Culture Reflexed (NO) Ethyl Alcohol (0-10) mg/dL Influenza Type A Ag (NEGATIVE) Influenza Type B Ag (NEGATIVE) RSV (PCR) (Negative) SARS-CoV-2 (PCR) (NEGATIVE) - Radiology Impressions Radiology Exams & Impressions: Radiology Procedures Category Date Time Status HEAD WITHOUT CONTRAST [CT] Stat Exams 07/31/22 17:50 Completed Assessment/Plan (1) Failure to thrive Current Visit: Yes Status: Acute Qualifiers: Failure to thrive age range: in adult Qualified Code(s): R62.7 - Adult failure to thrive Code(s): [id number] - (2) Confusion Current Visit: Yes Status: Acute Assessment & Plan: will also check B12/folate and RPR. Hypothyroid could be contributing. Unsure her baseline, would like POA to help us determine if she's at baseline. Code(s): R41.0 - DISORIENTATION, UNSPECIFIED (3) Frequent falls Current Visit: Yes Status: Acute Code(s): R29.6 - REPEATED FALLS (4) Hypothyroid Current Visit: Yes Status: Acute Qualifiers: Hypothyroidism type: acquired Qualified Code(s): E03.9 - Hypothyroidism, unspecified Assessment & Plan: start synthroid Code(s): E03.9 - HYPOTHYROIDISM, UNSPECIFIED (5) Weakness Current Visit: Yes Status: Acute Assessment & Plan: completely unable to return home at current level of weakness. Code(s): R53.1 - WEAKNESS
[2022-08-01] MEDS ORDERED: SYNTHROID 50 MCG ONE (12:09)
[2022-08-01] MEDS: SYNTHROID 50 MCG PO SCH (12:10)
[2022-08-01] MEDS: Sodium Chloride 0.9% 1000 ML 1,000 ML IV SCH (17:40)
[2022-08-02 07:18] LABS: Hematocrit 31.7 % (35-47); Hemoglobin 10.1 g/dL (12.0-16.0); Mean Corpuscular Hemoglobin 31.9 pg (26-32); Mean Corpuscular Hgb Concent. 31.9 g/dL (32-36); Mean Platelet Volume 9.1 fL (7.5-11.0); Platelet Count 135 x10^3/uL (150-450); Red Blood Count 3.17 x10^6/uL (4.1-5.4); Red Cell Distribution Width 13.2 % (11.5-14.0); White Blood Count 5.5 x10^3/uL (4.0-10.5)
[2022-08-02 08:43] LABS: ANION GAP 6.8 MEQ/L (5-15); Calcium 8.2 mg/dL (8.4-10.2); Creatinine 1 1.11 mg/dL (0.52-1.04); EST GLOMERULAR FILTRATION RATE 49.5 ML/MIN; Potassium 3.6 mmol/L (3.5-5.1)
[2022-08-02] MEDS: SYNTHROID 50 MCG PO SCH (09:36)
--- NOTE | 2022-08-02 10:30 | PCM.NOTE ---
Date and Time: 08/02/22 1024 Subjective Assessment: Night nurse reported to day nurse about 100 mL urine out overnight; currently pt already has over 100 mL out in the past 1.5 h (at the time of exam). Urine is yellow, with some sediment present. Pt would not sit on the edge of bed for rehab yesterday. Pt knows she is in [facility] and it is Aug,. - Review of Systems Constitutional: Weakness, No Fever Objective Exam General Appearance: no apparent distress, other (Finishing up a nutritional supplement drink) Neurologic Exam: oriented x 3, cooperative Skin Exam: normal color, warm, dry, No rash Wound Assessment: Skin/Wound Assessment Wound/Incision Assessment Start: 08/01/22 00:07 Text: Status: Active Freq: Q6H Protocol: Document 08/02/22 08:00 [facility] (Rec: 08/02/22 08:32 [facility] [id number]) Wound/Incision Assessment Sacrum Wound Assessment Shift Assessment Wound Type Pressure Ulcer Wound Stage Stage I Dressing Status Dry & Intact Drainage Amount None Wound Bed Greatest Portion Pale [place] Wound Bed Lesser Portion Red (Granulation) Surrounding Tissue [place] Primary Dressing MEPILEX Eye Exam: eyes nml inspection Ears, Nose, Throat Exam: moist mucous membranes Respiratory Exam: normal breath sounds, lungs clear, No crackles/rales, No rhonchi, No wheezing Cardiovascular Exam: regular rate/rhythm, normal heart sounds, No murmur Gastrointestinal/Abdomen Exam: soft, normal bowel sounds, tenderness (mild, generalized), No distention, No mass, No guarding, No rebound Extremity Exam: normal inspection, No pedal edema, No swelling OBJECTIVE DATA Vital Signs: Vital Signs - 24 hr Temp Pulse Resp BP Pulse Ox 08/02/22 07:08 97.5 F 60 15 108/59 97 08/02/22 04:00 97.9 F 64 16 117/60 95 08/01/22 23:52 98.0 F 69 16 114/67 95 08/01/22 20:00 98.0 F 69 18 134/67 96 08/01/22 19:00 97 08/01/22 16:00 98.0 F 61 16 112/61 91 L 08/01/22 14:11 91 L 08/01/22 11:18 97.9 F 65 16 102/57 94 L Pain Assessment - Last Documented Pain Intensity 0 Intake and Output: Intake & Output 07/30/22 07/31/22 08/01/22 08/02/22 11:59 11:59 11:59 11:59 Intake Total 60 1705 Output Total 800 490 Balance -740 1215 Weight 54.4 kg 54.1 kg Lab Results: Lab Results-Last 24 Hours 08/01/22 08/02/22 08/02/22 Range/Units 04:49 07:03 07:03 WBC 5.5 (4.0-10.5) x10^3/uL RBC 3.17 L (4.1-5.4) x10^6/uL Hgb 10.1 L (12.0-16.0) g/dL Hct 31.7 L (35-47) % MCV 100.0 (78-100) fL MCH 31.9 (26-32) pg MCHC 31.9 L (32-36) g/dL RDW 13.2 (11.5-14.0) % Plt Count 135 L (150-450) x10^3/uL MPV 9.1 (7.5-11.0) fL Sodium 136 L (137-145) mmol/L Potassium 3.6 (3.5-5.1) mmol/L Chloride 107 (98-107) mmol/L Carbon Dioxide 26 (22-30) mmol/L Anion Gap 6.8 (5-15) MEQ/L BUN 25 H (7-17) mg/dL Creatinine 1.11 H (0.52-1.04) mg/dL Estimated GFR 49.5 ML/MIN Glucose 75 (74-106) mg/dL Calcium 8.2 L (8.4-10.2) mg/dL Prealbumin 18.50 (17.6-36.0) mg/dL Radiology Exams: Radiology Procedures Category Date Time Status CHEST 1 VIEW (PORTABLE) Urgent Exams 08/02/22 09:23 Taken HEAD WITHOUT CONTRAST [CT] Stat Exams 07/31/22 17:50 Completed Multi-Disciplinary Progress Notes: Multi-Disciplinary Progress Notes 08/01/22 14:36 ST Plan of Care Note by Jabari#[id number] Speech Therapy Plan of Care ST Plan of Care Start: 08/01/22 14:30 Freq: Status: Active Protocol: Document 08/01/22 14:31 BM (Rec: 08/01/22 14:36 [id number]) E-Sign 08/01/22 14:31 Speech Therapy Plan of Care Problem List 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 Goal #1 PATIENT WILL COMPLETE ORAL MOTOR EXERCISES FOR INCREASE STRENGTH AND ENDURANCE OF LINGUAL, LABIAL, AND LARYNGEAL MUSCULATURE, 90% OF TRIALS. Status Initial Goal #2 PATIENT WILL DEMONSTRATE TOLERANCE & SAFETY FOR ORAL INTAKE OF MECH SOFT DIET WITH GROUND MEAT/GRAVY, WITHOUT CLINICAL S/S OF ASPIRATION/ DYSPHAGIA, 90% OF INTAKE TRIALS Status Initial Goal #3 PATIENT WILL DEMONSTRATE TOLERANCE & SAFETY FOR ORAL INTAKE OF REGULAR, THIN LIQUIDS WITHOUT CLINICAL S/S OF ASPIRATION/DYSPHAGIA, 90% OF TRIALS. Status Initial Frequency of Treatment: 5x/week Duration of Treatment: Hospital Stay Goals & POC discussed with patient/ Yes family Identified Barriers to Goal Achievement DISCHARGE PRIOR TO GOALS MET. Patient is aware of diagnosis and Yes prognosis Patient is receptive to plan of care Yes Rehabilitation Potential Good Patient Discharge Plan Description [facility] Patient Discharge Plan Comment DISCHARGE PLACEMENT TO LTC FACILITY WHEN MEDICALLY ABLE. Initialized on 08/01/22 14:36 - END OF NOTE 08/01/22 12:19 Case Management Note by Ann Guillen S/W WHIT HENDERSON- SHE WAS GIVEN PRINT OUT OF FACILITIES IN THE [facility] AREA FROM THE MEDICARE COMPARE WEBSITE THAT HAS THEIR PHONE NUMBERS AND MEDICARE RATINGS. SHE WILL DISCUSS WITH [facility] AND THEY WILL DECIDE ON FACILITIES FOR PATIENT Initialized on 08/01/22 12:19 - END OF NOTE Assessment/Plan (1) Failure to thrive Current Visit: Yes Status: Acute Qualifiers: Failure to thrive age range: in adult Qualified Code(s): R62.7 - Adult failure to thrive Code(s): [id number] - (2) Confusion Current Visit: Yes Status: Acute Assessment & Plan: she is much improved this morning. May wax and wane. Code(s): R41.0 - DISORIENTATION, UNSPECIFIED (3) Frequent falls Current Visit: Yes Status: Chronic Code(s): R29.6 - REPEATED FALLS (4) Hypothyroid Current Visit: Yes Status: Acute Qualifiers: Hypothyroidism type: acquired Qualified Code(s): E03.9 - Hypothyroidism, unspecified Assessment & Plan: newly on 50 mcg synthroid daily. Code(s): E03.9 - HYPOTHYROIDISM, UNSPECIFIED (5) Weakness Current Visit: Yes Status: Acute Assessment & Plan: Will await PT eval to see if pt has rehab potential. Code(s): R53.1 - WEAKNESS (6) Anemia Current Visit: Yes Status: Acute Qualifiers: Anemia type: unspecified type Qualified Code(s): D64.9 - Anemia, unspecified Code(s): D64.9 - ANEMIA, UNSPECIFIED (7) Thrombocytopenia Current Visit: Yes Status: Acute Assessment & Plan: will continue to watch this, new this admission.
--- NOTE | 2022-08-02 10:33 | XRAY ---
Indication: detention placement. Comparison: None Portable chest demonstrates large hiatal hernia with intrathoracic stomach in left lung base and left mid to lower lung infiltrate/atelectasis/effusion. Remaining heart and right lung unremarkable. Bony thorax intact with osteopenia, mild degenerative changes, and incompletely visualized lumbar levorotoscoliosis.
[2022-08-02] MEDS: ROCEPHIN 1 Gm-D5w 50 ml Bag** 1 G/50 ML IVPB IV SCH (11:07)
[2022-08-02] MEDS: Zithromax 500 MG/ 250 ML NaCl Premix 500 MG/250 ML IVPB IV SCH (11:40)
[2022-08-02] MEDS: Acidophilus TABLET PO SCH ×2 (16:21→22:54)
[2022-08-02] MEDS: Sodium Chloride 0.9% 1000 ML 1,000 ML IV SCH (18:22)
[2022-08-03 05:48] LABS: Hematocrit 31.7 % (35-47); Hemoglobin 10.2 g/dL (12.0-16.0); Mean Cell Volume 99.1 fL (78-100); Mean Corpuscular Hemoglobin 31.9 pg (26-32); Mean Corpuscular Hgb Concent. 32.2 g/dL (32-36); Platelet Count 147 x10^3/uL (150-450); Red Cell Distribution Width 13.3 % (11.5-14.0)
[2022-08-03 06:14] LABS: ANION GAP 5.9 MEQ/L (5-15); Calcium 8.3 mg/dL (8.4-10.2); Creatinine 1 1.01 mg/dL (0.52-1.04); EST GLOMERULAR FILTRATION RATE 55.2 ML/MIN; Potassium 3.5 mmol/L (3.5-5.1)
[2022-08-03] MEDS: SYNTHROID 50 MCG PO SCH (06:33)
[2022-08-03] MEDS: Acidophilus TABLET PO SCH (09:39)
[2022-08-03] MEDS: ROCEPHIN 1 Gm-D5w 50 ml Bag** 1 G/50 ML IVPB IV SCH (09:39)
[2022-08-03] MEDS: Zithromax 500 MG/ 250 ML NaCl Premix 500 MG/250 ML IVPB IV SCH (10:56)
[2022-08-03 11:35] VITALS: BP 102/53; PULSE 62; O2SAT 94
[2022-08-03 11:56] LABS: RPR Non Reactive (Non Reactive)
--- NOTE | 2022-08-03 12:54 | PCM.DS ---
Discharge Summary Date of Admission: 07/31/22 22:19 Admitting Physician: CHELSEA WATT Consults: Consults on Case 08/01/22 12:15 Nutritional Consult ROUTINE Primary Care Provider: NO FAMILY DOCTOR Allergies Allergies No Known Drug Allergies Allergy (Verified 07/31/22 17:58) Hospital Summary - Hospital Course Hospital Course: is a 86 year old female pt with no local MD who was brought in to ER after being found down. She was dx with frequent falls, FTT and found to be hypothyroid with hyponatremia. CT head was nonacute. Her mental status has improved somewhat since admission; she is oriented to date and place today. Yesterday she got her CXR for fpc placement, and it showed possible infiltrate in LLL so she was started on IV rocephin and zithromax. She will complete 5d of zithromax and rocephin/cefdinir. Needs f/u CXR in 1 mo. She does not want to move to do any sort of therapy; POA was informed of this and said to stop trying to move pt. She will go to [facility] today. - Vitals & Intake/Output Vital Signs: Vital Signs Temperature 97.7 F 08/03/22 11:34 Pulse Rate 62 08/03/22 11:34 Respiratory Rate 15 08/03/22 11:34 Blood Pressure 102/53 08/03/22 11:34 O2 Sat by Pulse Oximetry 94 L 08/03/22 11:34 Intake & Output: Intake & Output 08/01/22 08/02/22 08/03/22 08/04/22 11:59 11:59 11:59 11:59 Intake Total 60 1705 1671 Output Total 800 490 525 Balance -740 1215 1146 Weight 54.4 kg 54.1 kg 55 kg - Lab Result Diagrams: 08/03/22 05:10 08/03/22 05:22 Lab Results-Last 24 Hrs: Lab Results-Last 24 Hours 08/01/22 08/03/22 08/03/22 Range/Units 06:00 05:10 05:22 WBC 6.0 (4.0-10.5) x10^3/uL RBC 3.20 L (4.1-5.4) x10^6/uL Hgb 10.2 L (12.0-16.0) g/dL Hct 31.7 L (35-47) % MCV 99.1 (78-100) fL MCH 31.9 (26-32) pg MCHC 32.2 (32-36) g/dL RDW 13.3 (11.5-14.0) % Plt Count 147 L (150-450) x10^3/uL MPV 9.0 (7.5-11.0) fL Sodium 136 L (137-145) mmol/L Potassium 3.5 (3.5-5.1) mmol/L Chloride 107 (98-107) mmol/L Carbon Dioxide 26 (22-30) mmol/L Anion Gap 5.9 (5-15) MEQ/L BUN 22 H (7-17) mg/dL Creatinine 1.01 (0.52-1.04) mg/dL Estimated GFR 55.2 ML/MIN Glucose 82 (74-106) mg/dL Calcium 8.3 L (8.4-10.2) mg/dL RPR Non Reactive (Non Reactive) Micro Results-Entire Visit: Microbiology 07/31/22 18:01 Urine Culture - Final Catherized NO GROWTH 07/31/22 19:11 Blood Culture - Preliminary Blood NO GROWTH TO DATE 07/31/22 19:11 Blood Culture - Preliminary Blood NO GROWTH TO DATE - Radiology Exams Ordered Rad Exams-Entire Visit: Radiology Procedures Category Date Time Status CHEST 1 VIEW (PORTABLE) Urgent Exams 08/02/22 09:23 Completed - Procedures and Test Procedures and Tests throughout Hospitalization: Therapy Orders & Screens 08/01/22 11:18 PT Eval & Treat ( Order) ONCE Reason for Eval:: weakness Diagnosis: fall ST Eval & Treat ( Order) .as ordered Comment: Physician Instructions: Reason For Exam: Evaluate: Yes Treat: Yes Reason for Eval: Drinking water ok, want to make sure can eat ok before adding diet. Diagnosis: fall 08/01/22 14:10 Oxygen Nasal Cannula 2 lpm Comment: Diagnosis: fall Discharge Exam General Appearance: no apparent distress, alert, thin Neurologic Exam: oriented x 3, cooperative, other (limited affect.) Eye Exam: eyes nml inspection Ears, Nose, Throat Exam: moist mucous membranes Neck Exam: normal inspection Respiratory Exam: normal breath sounds, lungs clear, No crackles/rales, No rhonchi, No wheezing Cardiovascular Exam: regular rate/rhythm, normal heart sounds, No murmur Gastrointestinal/Abdomen Exam: soft, normal bowel sounds, No tenderness, No distention, No mass, No guarding, No rebound Extremity Exam: normal inspection, No pedal edema, No swelling Skin Exam: normal color, warm, dry, No rash Wound Assessment: Skin/Wound Assessment Wound/Incision Assessment Start: 08/01/22 00:07 Text: Status: Active Freq: Q6H Protocol: Document 08/03/22 08:00 [facility] (Rec: 08/03/22 08:56 [facility] [id number]) Co-Sign 08/03/22 08:00 OLE[place]SKI Wound/Incision Assessment Sacrum Wound Assessment Shift Assessment Wound Type Pressure Ulcer Wound Stage Stage I Dressing Status Dry & Intact Drainage Amount None Wound Bed Greatest Portion Pale [place] Wound Bed Lesser Portion Red (Granulation) Surrounding Tissue Perryman Primary Dressing MEPILEX Wound Photo Photo Taken No Final Diagnosis/Problem List - Final Discharge Diagnosis/Problem (1) Pneumonia Current Visit: Yes Status: Acute Assessment & Plan: Possibly - will finish 5d of zithromax and 3rd generation cephalosporin. Code(s): J18.9 - PNEUMONIA, UNSPECIFIED ORGANISM (2) Hypothyroid Current Visit: Yes Status: Acute Assessment & Plan: Could have contributed quite a bit to her failure to thrive, and seems to have contributed to her initial confusion. Needs TSH/free T4 rechecked in 6-8 weeks. Code(s): E03.9 - HYPOTHYROIDISM, UNSPECIFIED (3) Failure to thrive Current Visit: Yes Status: Chronic Code(s): XWM9708 - (4) Confusion Current Visit: Yes Status: Resolved Code(s): R41.0 - DISORIENTATION, UNSPECIFIED (5) Frequent falls Current Visit: Yes Status: Chronic Code(s): R29.6 - REPEATED FALLS (6) Weakness Current Visit: Yes Status: Chronic Code(s): R53.1 - WEAKNESS (7) Anemia Current Visit: Yes Status: Chronic Code(s): D64.9 - ANEMIA, UNSPECIFIED (8) Thrombocytopenia Current Visit: Yes Status: Acute Assessment & Plan: improved today, 147 (was 135 yesterday, but nl (177) on admission. - Discharge Disposition: DC TO ANY "OTHER" [facility] Condition: Stable Prescriptions: New Lactobacillus Acidophilus [Acidophilus TABLET] 1 tab PO TID #15 tablet Cefdinir 300 mg PO BID #6 cap Levothyroxine Sodium 50 Mcg [Synthroid 50 Mcg] 50 mcg PO DAILY@0700 #30 tablet Azithromycin 250 mg [Zithromax 250 MG TABLET] 250 mg PO DAILY #3 tablet Additional Instructions: [facility] ORDERS: -MECHANICAL SOFT DIET WITH GROUND MEAT (GRAVY WITH MEAT) -ENSURE TID WITH MEALS -ST/PT/OT- IF PATIENT AGREEABLE AND WILLING SEE ATTACHED MED LIST Follow up with: DOCTOR,NO FAMILY [Primary Care Provider] - Forms: Ambulance Transport Record, Transfer Record [facility]
== END 2022-08-03 14:11 | DRG 195 ==
LOC: ED 16:58 → MED SURG 22:19
PROVIDERS: ADMIT Family Medicine; ATTEND Family Medicine
DX: J18.9 Pneumonia, unspecified organism (principal); R53.1 Weakness; E03.9 Hypothyroidism, unspecified; R62.7 Adult failure to thrive; R41.0 Disorientation, unspecified; R29.6 Repeated falls; D64.9 Anemia, unspecified; D69.6 Thrombocytopenia, unspecified; L89.151 Pressure ulcer of sacral region, stage 1; F03.90 Unspecified dementia, unspecified severity, without behavioral disturbance, psychotic disturbance, mood disturbance, and anxiety; Z20.828 Contact with and (suspected) exposure to other viral communicable diseases
CPT/HCPCS: 0241U; 36000; 36415; 51702; 70450; 71045; 80048; 80053; 81001; 82140; 82607; 82746; 83735; 83880; 84134; 84436; 84443; 84484; 85025; 85027; 86592; 87040; 87086; 92610; 93005; 94760; 96374; 97161; 99285; G0480; 80307; J0456; J0696; J2405; A9270-GY

== ENCOUNTER 2023-04-03 05:06 | Emergency (ER) | payer MEDICARE ==
[2023-04-03 05:29] VITALS: TEMP 97.1
--- NOTE | 2023-04-03 05:41 | ERPHSYRPT ---
- History of Present Illness Time Seen by Provider: 04/03/23 05:20 Source: [facility], EMS, [facility] Exam Limitations: clinical condition Patient Subjective Stated Complaint: pt fell at [facility] onto bottom states staff. upon arrival, pt states it hardly hurts at all anymore. moves all extremeties well. no bruising or reddened areas noted on posterior surface of body. no bruising or reddened areas noted on limbs Triage Nursing Assessment: according to ambulance staff, pt fell on [facility] at [facility] and staff wanted to get patient checked out at the hospital. no apparent injury at this time. pt oriented to person and place. pt states she does not know the year or president. pt has dx of dementia. productive cough noted. pt states she has been coughing for a month. exudate cream colored and thick. lung sounds clear but diminished bilaterally Physician History: This is an 87-year-old white female patient is a resident at the [facility] and presents via paramedics because she experienced a fall at that facility. Patient has no known drug allergies. She has a history of dementia. She has a cough and she was placed on azithromycin and she is currently on antibiotics. Patient does have frequent falls. She has a history of hypothyroidism and anxiety. Patient states that she no longer has pain in the buttock area. Patient is COVID 19 positive. Occurred: just prior to arrival Reason for Fall: unknown Injuries/Pain Location: back (Lower sacrum and coccyx as well as posterior pelvic region) Loss of Consciousness: no loss of consciousness Quality: aching Severity of Pain-Max: mild Severity of Pain-Current: none Associated Symptoms (Fall): denies symptoms Allergies/Adverse Reactions: No Known Drug Allergies Allergy (Verified 04/03/23 05:42) Home Medications: Acetaminophen 325 mg [Tylenol 325 mg] 650 mg PO Q4HPRN PRN 04/03/23 [History] Ascorbic Acid 500 mg [Vitamin C 500 MG] 1,000 mg PO DAILY 04/03/23 [History] Azithromycin [Zithromax] 500 mg PO DAILY 04/03/23 [History] Biofreeze 4% Menthol 4 gel TOP Q6HPRN PRN 04/03/23 [History] Docusate Sodium [Colace] 100 mg PO BID 04/03/23 [History] Fluoxetine HCl 10 mg [Prozac 10 mg] 10 mg PO DAILY 04/03/23 [History] Hydrocodone Bit/Acetaminophen [[place] 5/325Mg] 1 each PO BID 04/03/23 [History] Lanolin Alcohol/Mo/W.pet/[place] [Eucerin Cream] 57 gm TP TID 04/03/23 [History] Levothyroxine Sodium 112 Mcg [Synthroid 112 Mcg] 112 mcg PO UD 04/03/23 [History] Levothyroxine Sodium 25 Mcg [Synthroid 25 Mcg] 125 mcg PO UD 04/03/23 [History] Omeprazole 20 MG [Prilosec 20 mg] 20 mg PO HS 04/03/23 [History] Ondansetron ODT 4 MG [Zofran Odt 4 mg] 4 mg PO Q6HPRN PRN 04/03/23 [History] Patanol Opthalmic Solution0.1% 1 drop BID 04/03/23 [History] Systane Opthalmic Solution 1 drop TID 04/03/23 [History] Tamsulosin HCl 0.4 mg [Flomax 0.4 MG] 0.4 mg PO DAILY 04/03/23 [History] Zinc Oral Tablet 50 mg PO DAILY 04/03/23 [History] Hx Tetanus, Diphtheria Vaccination/Date Given: No Hx Influenza Vaccination/Date Given: No Hx Pneumococcal Vaccination/Date Given: No Immunizations Up to Date: Yes Travel Risk - International Travel Have you traveled outside of the country in past 3 weeks: No - Coronavirus Screening Symptoms: Cough: New Onset Close contact with a COVID-19 positive Pt in past 14-21 Days: No - Vaccine Status Have you recieved a Covid-19 vaccination: Yes Learning And Development Associate: Unknown - Vaccination Dates Dates if Unknown: unk - Review of Systems Constitutional: No Symptoms Eyes: No Symptoms Ears, Nose, & Throat: No Symptoms Respiratory: Cough Cardiac: No Symptoms Abdominal/Gastrointestinal: No Symptoms Genitourinary Symptoms: No Symptoms Musculoskeletal: Fall Skin: No Symptoms Neurological: No Symptoms Psychological: No Symptoms Endocrine: No Symptoms Hematologic/Lymphatic: No Symptoms Immunological/Allergic: No Symptoms All Other Systems: Reviewed and Negative - Past Medical History Pertinent Past Medical History: Yes (Patient is confused ) Neurological History: Dementia Cardiac History: No Pertinent History Respiratory History: No Pertinent History Endocrine Medical History: Hypothyroidism Musculoskeletal History: Arthritis GI Medical History: No Pertinent History Psycho-Social History: Anxiety, Depression Other Medical History: . - Past Surgical History Past Surgical History: Yes Neuro Surgical History: No Pertinent History Cardiac: No Pertinent History Respiratory: No Pertinent History Gastrointestinal: Appendectomy Genitourinary: No Pertinent History Musculoskeletal: Joint Replacement Female Surgical History: No Pertinent History Other Surgical History: rt hip in [facility]Dr Torres - Social History Smoking Status: Never smoker Exposure to second hand smoke: No Drug Use: none Patient Lives Alone: No - Nursing Vital Signs Nursing Vital Signs: Initial Vital Signs Blood Pressure 148/80 04/03/23 04:59 Pain Scale Pain Intensity 0 - [place] Coma Score Best Eye Response ([place]): (4) open spontaneously Best Verbal Response ([place]): (5) oriented (To self and place) Best Motor Response ([place]): (6) obeys commands [place] Total: 15 - Physical Exam General Appearance: no apparent distress, alert Head Injury: no evidence of injury Eye Exam: PERRL/EOMI, eyes nml inspection ENT Exam: airway nml, nml ext.inspection Neck Exam: supple, trachea midline, full range of motion, normal alignment, normal inspection Respiratory/Chest Exam: normal breath sounds, No chest tenderness, No respiratory distress, No crepitus Cardiovascular Exam: normal heart sounds, regular rate/rhythm Gastrointestinal Exam: soft, normal bowel sounds, No tenderness Rectal Exam: not done Back Exam: normal inspection, normal range of motion, No CVA tenderness, No vertebral tenderness Extremity Exam: normal inspection, normal range of motion Neurologic Exam: alert, cooperative, typing teacher II-XII nml as tested, normal mood/affect, other (Patient oriented to place and self) Skin Exam: normal color, warm, dry SpO2 Interpretation: normal SpO2: 97 O2 Delivery: Room Air - Course Nursing assessment & vital signs reviewed: Yes Ordered Tests: Active Orders 24 hr Category Date Time Status PELVIS (1 OR 2 VIEWS) Stat Exams 04/03/23 05:42 Taken SACRUM AND COCCYX Stat Exams 04/03/23 05:42 Taken Sputum Culture [CULTURE,SPUTUM] Stat Lab 04/03/23 06:14 Received Sputum Specimen Obtain .as ordered RT 04/03/23 06:01 Active - Progress Progress: unchanged Progress Note: 04/03/23 06:31 This patient's medical issue is 1 of low complexity. Level complex in the work- up performed based on review of the patient's past medical history, review of the patient's medication list, review of the patient's drug allergy list, history of present illness and physical findings on examination. Patient's work-up includes a pelvic x-ray and a sacrum coccyx x-ray. I interpreted these studies myself. In addition, I did not perform a chest x-ray. Patient has a cough we did obtain a sputum and we sent that for culture patient is currently on antibiotics that we will treat pneumonia. 04/03/23 06:32 04/03/23 06:36 X-ray of the sacrum and coccyx was interpreted by me. There is no evidence of any acute fracture or dislocation. Pelvic x-ray was interpreted by me. There is no evidence of any acute fracture or dislocation. The right hip replacement hardware appears to be in an appropriate position. Counseled pt/family regarding: diagnosis, need for follow-up, rad results Medical Desision Making - Independent Historian Additional History obtained from: Half-Way nurse, Party Plan Sales Unit Sales Leader/EMT - Diagnostic Testing Diagnostic test were ordered, analyzed, and reviewed by me: Yes Radiological Interpretation: Interpreted by me - Risk of complications Low Risk: Low risk of morbidity from additional dx testing or treatment - Departure Departure Disposition: Extended Care Facility Clinical Impression: Fall with no significant injury Condition: Stable Critical Care Time: No Referrals: JANET CALVO OF [Primary Care Provider] - Follow up/PCP as directed
[2023-04-03 07:14] VITALS: BP 137/90; PULSE 71; RESP 20; O2SAT 94
--- NOTE | 2023-04-03 09:05 | XRAY ---
Negation: Pain following fall. 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 No other bony, articular, or soft tissue abnormalities.
--- NOTE | 2023-04-03 09:21 | XRAY ---
Indication: Pain following fall. Comparison: None 3 view sacrum/coccyx demonstrates osteopenia, mild left hip degenerative arthropathy, right total hip arthroplasty with intact bipolar prosthesis/acetabular screw, incompletely visualized levoscoliosis lower lumbar spine, degenerative spondylosis visualized lower lumbar spine, and poorly visualized retrolisthesis of L4 on L5. No other bony, articular, or soft tissue abnormalities.
== END 2023-04-03 07:40 | disposition home or self-care (01) ==
LOC: ED 05:06
DX: Z04.3 Encounter for examination and observation following other accident (principal); R29.6 Repeated falls; Z79.891 Long term (current) use of opiate analgesic; Z79.899 Other long term (current) drug therapy
CPT/HCPCS: 72170; 72220; 87070; 99283